=== PATIENT | female | born 1965 | race Caucasian/White ===

== ENCOUNTER 2017-04-30 23:45 | Emergency (ER) | payer BC | END 2017-05-01 00:44 | disposition left against medical advice (07) | LOC: JER 23:45 | DX: Z53.21 Procedure and treatment not carried out due to patient leaving prior to being seen by health care provider (principal) | CPT/HCPCS: 99281-25 ==

== ENCOUNTER 2017-10-25 00:57 | Emergency (ER) | payer OTHER ==
[2017-10-25] MEDS ORDERED: SODIUM CHLORIDE 0.9% 1000 ML INFUS.BAG IV ONE (01:44)
[2017-10-25] MEDS ORDERED: morphine CARPU-JECT 4 MG/1 ML DISP.SYRIN IVPUSH ONE ×2 (01:44→02:26)
[2017-10-25 01:52] VITALS: BP 135/87; PULSE 88; TEMP 98.7; BMI 36.5
[2017-10-25 01:57] LABS: BASO % 0.7 % (0-2.0); EOS % 1.7 % (0-4.5); HEMATOCRIT 42.4 % (32.4-45.2); HEMOGLOBIN 13.9 GM/dL (10.7-15.3); LYMPH % 21.3 % (8-40); MCH 27.4 pg (25.7-33.7); MCHC 32.7 g/dl (32.0-36.0); MEAN CELL VOLUME 83.7 fl (80-96); MEAN PLT VOLUME 9.7 fl (7.5-11.1); MONO % 5.5 % (3.8-10.2); NEUT % 70.8 % (42.8-82.8); PLATELET COUNT 263 K/MM3 (134-434); RBC 5.06 M/mm3 (3.60-5.2); RDW 14.9 % (11.6-15.6); WHITE BLOOD COUNT 11.3 K/mm3 (4.0-10.0)
[2017-10-25] MEDS ORDERED: ONDANSETRON 4 MG/2 ML VIAL ONE (01:58)
[2017-10-25] MEDS ORDERED: morphine CARPU-JECT 10 MG/1 ML DISP.SYRIN ONE ×2 (01:58→02:31)
--- NOTE | 2017-10-25 02:06 | PDOC ---
History of Present Illness - General Chief Complaint: Pain Stated Complaint: STOMACH/SIDE PAIN Time Seen by Provider: 10/25/17 01:38 Past History - Past Medical History Allergies/Adverse Reactions: Allergies Allergy/AdvReac Type Severity Reaction Status Date / Time No Known Allergies Allergy Verified 10/25/17 01:52 Home Medications: Ambulatory Orders Amlodipine Besylate 10 mg PO DAILY 04/30/16 Buspirone HCl [Buspar -] 10 mg PO DAILY 04/30/16 Clonazepam [Klonopin] 1 mg PO DAILY 04/30/16 Desloratadine/Pseudoephedrine [Clarinex-D 12 Hour Tablet] 1 each PO DAILY Losartan/Hydrochlorothiazide [Losartan-Hctz 50-12.5 mg Tab] 1 each PO DAILY Montelukast Na [Singulair -] 10 mg PO HS 04/30/16 Albuterol Sulfate [Proair Respiclick] 90 mcg IH DAILY PRN 05/01/16 Budesonide/Formeterol Fumarate [SYMBICORT 160/4.5mcg -] 1 inh PO DAILY PRN 05/01 Methylprednisolone [Medrol Dose Denzel] 4 mg PO ASDIR #21 tablet 08/10/17 Anemia: No Asthma: Yes Cancer: Yes (RIGHT AND LEFT BREAST) Cardiac Disorders: No CVA: No COPD: No CHF: No Dementia: No Diabetes: No GI Disorders: Yes (DIVERTICULOSIS) Disorders: No HTN: Yes Hypercholesterolemia: No Liver Disease: No Psychiatric Problems: Yes (ANXIETY) Seizures: No Thyroid Disease: No - Surgical History Abdominal Surgery: Yes Appendectomy: No Cardiac Surgery: No Cholecystectomy: No Lung Surgery: No Neurologic Surgery: No Orthopedic Surgery: Yes (LEFT CARPAL TUNNEL) - Suicide/Smoking/Psychosocial Hx Smoking Status: No Smoking History: Never smoked Have you smoked in the past 12 months: No Number of Cigarettes Smoked Daily: 0 Information on smoking cessation initiated: No Hx Alcohol Use: No Drug/Substance Use Hx: No Substance Use Type: None Hx Substance Use Treatment: No *Physical Exam - Vital Signs Last Vital Signs Temp Pulse Resp BP Pulse Ox 98.7 F 88 19 135/87 99 10/25/17 01:49 10/25/17 01:49 10/25/17 01:49 10/25/17 01:49 10/25/17 01:49 ED Treatment Course - LABORATORY CBC & Chemistry Diagram: 10/25/17 01:45 10/25/17 01:53 - ADDITIONAL ORDERS Additional order review: 10/25/17 01:45 RBC 5.06 MCV 83.7 MCHC 32.7 RDW 14.9 MPV 9.7 Neutrophils % 70.8 D Lymphocytes % 21.3 Monocytes % 5.5 Eosinophils % 1.7 Basophils % 0.7 *DC/Admit/Observation/Transfer - Discharge Dispostion Condition at time of disposition: Fair - Referrals - Patient Instructions - Post Discharge Activity
[2017-10-25] MEDS ORDERED: ONDANSETRON 4 MG/2 ML VIAL IVPUSH ONE (02:09)
[2017-10-25 02:12] LABS: INR 0.97 (0.82-1.09)
[2017-10-25 02:14] LABS: ACTIVATED PTT 30.8 SECONDS (26.9-34.4)
[2017-10-25 02:22] LABS: ALBUMIN 3.4 g/dl (3.4-5.0); ANION GAP 12 (8-16); BILIRUBIN,TOTAL 0.4 mg/dL (0.2-1.0); BLOOD UREA NITROGEN 14 mg/dL (7-18); CALCIUM 8.3 mg/dL (8.5-10.1); CHLORIDE 101 mmol/L (98-107); CO2 25 mmol/L (21-32); CREATININE 0.9 mg/dL (0.55-1.02); GLUCOSE,RANDOM 164 mg/dL (74-106); LIPASE 133 U/L (73-393); SGPT/ALT 20 U/L (12-78); SODIUM 138 mmol/L (136-145); TOT PROT 7.4 g/dl (6.4-8.2)
[2017-10-25 02:25] LABS: ALK PHOS 95 U/L (45-117)
[2017-10-25 02:29] LABS: POTASSIUM 4.2 mmol/L (3.5-5.1); SGOT/AST 26 U/L (15-37)
--- NOTE | 2017-10-25 02:44 | PDOC ---
Attending Attestation - Resident Resident Name: Jacob Harris - ED Attending Attestation I have performed the following: I have examined & evaluated the patient, The case was reviewed & discussed with the resident, I agree w/resident's findings & plan - HPI HPI: 10/25/17 02:37 Pt comes with abd pain. She has diffuse tenderness. 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 She cooked at home and ate the food that the whole family ate and nobody else is ill. Pt's mom has a hx og GB stones. Pt is obese. She has no hx of surgeries other than breast lumpectomy and hysterectomy. - Physicial Exam PE: 10/25/17 02:44 Pt is afebrile. Diffiuse abd pain. No fever NO chills. - Medical Decision Making 10/25/17 02:44 Labs pending 10/25/17 03:08 Labs are normal. Pt will be hydrated and she will go home as soon as she feels better. 10/25/17 06:57 Patient Name: PAPO HARDY THIS IS A PRELIMINARY REPORT FROM [facility] DATE OF SERVICE: 2017-10-25 05:39:27 IMAGES: 470 EXAM: CT ABDOMEN AND PELVIS with contrast HISTORY: Right upper quadrant pain COMPARISON: None. FINDINGS:Serial axial sections through the abdomen and pelvis were obtained. Coronal and sagittal reformatted images are available. Intravenous contrast was administered. Oral contrast was not given. There are no prior studies for comparison. The sections through the lung bases are without consolidation. Minimal atelectasis is noted at the lung bases. A water density mass just to the right of the right heart border suggests a pericardial cyst. This measures 5.3 x 3.3 cm in diameter. The liver and spleen have a normal size and configuration. No focal defects are seen.
--- NOTE | 2017-10-25 02:49 | PDOC ---
History of Present Illness - General History Source: Patient Exam Limitations: No Limitations - History of Present Illness Initial Comments: 10/25/17 02:49 The patient is a 52F with a PMH of asthma and HTN who presents to the ED with abdominal pain. The patient states that her pain started abruptly at 1700 on and was associated with NBNB vomiting and severe pain. The pain is located in her epigastric/RUQ region and radiates to her back. The patient is constant, 10/10 and not relieved by anything or provoked by anything. She denies any diarrhea, CP, SOB, fever, chills. <Jacob Harris - Last Filed: 10/25/17 06:44> <Phylicia Gama - Last Filed: 10/25/17 07:38> - General Chief Complaint: Pain Stated Complaint: STOMACH/SIDE PAIN Time Seen by Provider: 10/25/17 01:38 Past History - Past Medical History Anemia: No Asthma: Yes Cancer: Yes (RIGHT AND LEFT BREAST) Cardiac Disorders: No CVA: No COPD: No CHF: No Dementia: No Diabetes: No GI Disorders: Yes (DIVERTICULOSIS) Disorders: No HTN: Yes Hypercholesterolemia: No Liver Disease: No Psychiatric Problems: Yes (ANXIETY) Seizures: No Thyroid Disease: No - Surgical History Abdominal Surgery: Yes Appendectomy: No Cardiac Surgery: No Cholecystectomy: No Lung Surgery: No Neurologic Surgery: No Orthopedic Surgery: Yes (LEFT CARPAL TUNNEL) - Suicide/Smoking/Psychosocial Hx Smoking Status: No Smoking History: Never smoked Have you smoked in the past 12 months: No Number of Cigarettes Smoked Daily: 0 Information on smoking cessation initiated: No Hx Alcohol Use: No Drug/Substance Use Hx: No Substance Use Type: None Hx Substance Use Treatment: No <Jacob Harris - Last Filed: 10/25/17 06:44> <Phylicia Gama - Last Filed: 10/25/17 07:38> - Past Medical History Allergies/Adverse Reactions: Allergies Allergy/AdvReac Type Severity Reaction Status Date / Time No Known Allergies Allergy Verified 10/25/17 01:52 Home Medications: Ambulatory Orders Amlodipine Besylate 10 mg PO DAILY 04/30/16 Buspirone HCl [Buspar -] 10 mg PO DAILY 04/30/16 Clonazepam [Klonopin] 1 mg PO DAILY 04/30/16 Desloratadine/Pseudoephedrine [Clarinex-D 12 Hour Tablet] 1 each PO DAILY Losartan/Hydrochlorothiazide [Losartan-Hctz 50-12.5 mg Tab] 1 each PO DAILY Montelukast Na [Singulair -] 10 mg PO HS 04/30/16 Albuterol Sulfate [Proair Respiclick] 90 mcg IH DAILY PRN 05/01/16 Budesonide/Formeterol Fumarate [SYMBICORT 160/4.5mcg -] 1 inh PO DAILY PRN 05/01 Methylprednisolone [Medrol Dose Denzel] 4 mg PO ASDIR #21 tablet 08/10/17 Ondansetron [Zofran *Odt*] 8 mg SL TID #24 od.tablet 10/25/17 Review of Systems - Review of Systems Able to Perform ROS?: Yes Comments:: 10/25/17 03:05 GENERAL/CONSTITUTIONAL: No fever or chills. No weakness. HEAD, EYES, EARS, NOSE AND THROAT: No change in vision. No ear pain or discharge. No sore throat. GASTROINTESTINAL: Positive for abdominal pain, nausea, and vomiting. No diarrhea or constipation. GENITOURINARY: No dysuria, frequency, hematuria, or change in urination. CARDIOVASCULAR: No chest pain, palpitations, or lightheadedness. RESPIRATORY: No cough, wheezing, shortness of breath, or hemoptysis. MUSCULOSKELETAL: No joint or muscle swelling or pain. No neck or back pain. SKIN: No rash or lesions. NEUROLOGIC: No headache, numbness, tingling, weakness, loss of consciousness, or change in strength/sensation. ENDOCRINE: No increased thirst. No abnormal weight change. HEMATOLOGIC/LYMPHATIC: No anemia, easy bleeding, or history of blood clots. ALLERGIC/IMMUNOLOGIC: No hives or skin allergy. Is the patient limited Brazilian proficient: No <Jacob Harris - Last Filed: 10/25/17 06:44> *Physical Exam - Vital Signs Last Vital Signs Temp Pulse Resp BP Pulse Ox 98.7 F 88 19 135/87 99 10/25/17 01:49 10/25/17 01:49 10/25/17 01:49 10/25/17 01:49 10/25/17 01:49 - Physical Exam Comments: 10/25/17 03:06 GENERAL: Well developed, well nourished. Awake and alert. In mild distress. HEENT: Normocephalic, atraumatic. Hearing grossly normal. Moist mucous membranes. PERRLA, EOMI. No conjunctival pallor. Sclera are non-icteric. Oropharynx is clear. NECK: Supple. Full ROM. No JVD. Carotid pulses 2+ and symmetric, without bruits. No thyromegaly. No lymphadenopathy. CARDIOVASCULAR: Regular rate and rhythm. No murmurs, rubs, or gallops. Distal pulses are 2+ and symmetric. PULMONARY: No evidence of respiratory distress. Lungs clear to auscultation bilaterally. No wheezing, rales or rhonchi. ABDOMINAL: Tenderness to palpation in all quadrants. Soft. Non-distended. No rebound or guarding. GENITOURINARY: R CVA tenderness. MUSCULOSKELETAL: Normal range of motion at all joints. No bony deformities or tenderness. EXTREMITIES: No cyanosis. No clubbing. No edema. No calf tenderness. SKIN: Warm and dry. Normal capillary refill. No rashes. No jaundice. NEUROLOGICAL: Alert, awake, appropriate. Cranial nerves 2-12 intact. Normal speech. Gait is normal without ataxia. PSYCHIATRIC: Cooperative. Good eye contact. Appropriate mood and affect. <Jacob Harris - Last Filed: 10/25/17 06:44> - Vital Signs Last Vital Signs Temp Pulse Resp BP Pulse Ox 98.7 F 88 19 135/87 99 10/25/17 01:49 10/25/17 01:49 10/25/17 01:49 10/25/17 01:49 10/25/17 01:49 <Phylicia Gama - Last Filed: 10/25/17 07:38> Heart Score/ECG Review #1 ECG reviewed & interpreted by me at: 03:15 General ECG Interpretation: Sinus Rhythm, Normal Rate, Normal Intervals, No acute ischemic changes <Jacob Harris - Last Filed: 10/25/17 06:44> ED Treatment Course - LABORATORY CBC & Chemistry Diagram: 10/25/17 01:45 10/25/17 01:53 - ADDITIONAL ORDERS Additional order review: Laboratory Results 10/25/17 10/25/17 10/25/17 01:53 01:45 01:45 PT with INR 11.00 INR 0.97 PTT (Actin FS) 30.8 Sodium 138 Potassium 4.2 Chloride 101 Carbon Dioxide 25 Anion Gap 12 BUN 14 Creatinine 0.9 Creat Clearance w eGFR > 60 Random Glucose 164 H Lactic Acid 1.6 Calcium 8.3 L Total Bilirubin 0.4 D AST 26 D ALT 20 Alkaline Phosphatase 95 Creatine Kinase 86 Troponin I 0.02 Total Protein 7.4 Albumin 3.4 Lipase 133 10/25/17 01:45 RBC 5.06 MCV 83.7 MCHC 32.7 RDW 14.9 MPV 9.7 Neutrophils % 70.8 D Lymphocytes % 21.3 Monocytes % 5.5 Eosinophils % 1.7 Basophils % 0.7 - RADIOLOGY Radiology Studies Ordered: Category Date Time Status ABDOMEN & PELVIS CT WITH CONTR [CT] Stat CT Scan 10/25/17 02:21 Ordered - Medications Given in the ED: ED Medications Discontinued Medications Generic Name Dose Route Start Last Admin Trade Name Freq PRN Reason Stop Dose Admin Morphine Sulfate 4 mg 10/25/17 01:44 10/25/17 02:08 Morphine Injection - IVPUSH 10/25/17 01:45 4 mg ONCE ONE Administration Morphine Sulfate 2 mg 10/25/17 02:26 10/25/17 02:41 Morphine Injection - IVPUSH 10/25/17 02:27 2 mg ONCE ONE Administration Ondansetron HCl 4 mg 10/25/17 02:09 10/25/17 02:09 Zofran Injection IVPUSH 10/25/17 02:10 4 mg NOW ONE Administration Sodium Chloride 1,000 ml 10/25/17 01:44 10/25/17 02:08 Normal Saline - IV 10/25/17 01:45 1,000 ml ONCE ONE Administration <Jacob Harris - Last Filed: 10/25/17 06:44> - LABORATORY CBC & Chemistry Diagram: 10/25/17 01:45 10/25/17 01:53 - ADDITIONAL ORDERS Additional order review: Laboratory Results 10/25/17 10/25/17 10/25/17 02:20 01:53 01:45 PT with INR INR PTT (Actin FS) Sodium 138 Potassium 4.2 Chloride 101 Carbon Dioxide 25 Anion Gap 12 BUN 14 Creatinine 0.9 Creat Clearance w eGFR > 60 Random Glucose 164 H Lactic Acid Calcium 8.3 L Total Bilirubin 0.4 D AST 26 D ALT 20 Alkaline Phosphatase 95 Creatine Kinase 86 Troponin I 0.02 Total Protein 7.4 Albumin 3.4 Lipase 133 Serum , Qual Negative Blood Type B POSITIVE Antibody Screen Negative 10/25/17 10/25/17 01:45 01:45 PT with INR 11.00 INR 0.97 PTT (Actin FS) 30.8 Sodium Potassium Chloride Carbon Dioxide Anion Gap BUN Creatinine Creat Clearance w eGFR Random Glucose Lactic Acid 1.6 Calcium Total Bilirubin AST ALT Alkaline Phosphatase Creatine Kinase Troponin I Total Protein Albumin Lipase Serum , Qual Blood Type Antibody Screen 10/25/17 01:45 RBC 5.06 MCV 83.7 MCHC 32.7 RDW 14.9 MPV 9.7 Neutrophils % 70.8 D Lymphocytes % 21.3 Monocytes % 5.5 Eosinophils % 1.7 Basophils % 0.7 - Medications Given in the ED: ED Medications Discontinued Medications Generic Name Dose Route Start Last Admin Trade Name Freq PRN Reason Stop Dose Admin Al Hydroxide/Mg Hydroxide 30 ml 10/25/17 03:08 10/25/17 03:33 Mylanta Oral Suspension - PO 10/25/17 03:09 30 ml ONCE ONE Administration Famotidine/Sodium Chloride 20 mg in 50 mls @ 100 mls/hr 10/25/17 03:08 03:33 Pepcid 20 Mg Premixed Ivpb - IVPB 10/25/17 03:37 100 mls/hr ONCE ONE Administration Morphine Sulfate 4 mg 10/25/17 01:44 10/25/17 02:08 Morphine Injection - IVPUSH 10/25/17 01:45 4 mg ONCE ONE Administration Morphine Sulfate 2 mg 10/25/17 02:26 10/25/17 02:41 Morphine Injection - IVPUSH 10/25/17 02:27 2 mg ONCE ONE Administration Ondansetron HCl 4 mg 10/25/17 02:09 10/25/17 02:09 Zofran Injection IVPUSH 10/25/17 02:10 4 mg NOW ONE Administration Sodium Chloride 1,000 ml 10/25/17 01:44 10/25/17 02:08 Normal Saline - IV 10/25/17 01:45 1,000 ml ONCE ONE Administration <Phylicia Gama - Last Filed: 10/25/17 07:38> Medical Decision Making - Medical Decision Making 10/25/17 03:15 The patient is a 52F with a PMH of asthma and HTN who presents to the ED with abdominal pain complaints. I am concerned for a RUQ pathology. Pending labs and imaging. Will not order CT per attending. I have a slight concern for appendicitis or ovarian torsion 2/2 to abrupt onset of pain. Labs WNL. Pending UA. 10/25/17 06:34 UA negative. CTAP with IV shows pericardial cyst that looks enlarged on preliminary read. Pending official read. 10/25/17 06:37 Official read shows pericardial cyst. Will instruct patient to follow up with PCP. Otherwise negative. 10/25/17 06:44 Will prescribe zofran outpt. Patient agrees and is ready for d/c. <Jacob Harris - Last Filed: 10/25/17 06:44> *DC/Admit/Observation/Transfer - Discharge Dispostion Admit: No <Jacob Harris - Last Filed: 10/25/17 06:44> - Discharge Dispostion Admit: No <Phylicia Gama - Last Filed: 10/25/17 07:38> Diagnosis at time of Disposition: Abdominal pain Qualifiers: Abdominal location: epigastric Qualified Code(s): R10.13 - Epigastric pain - Discharge Dispostion Disposition: HOME Condition at time of disposition: Stable - Prescriptions Prescriptions: Ondansetron [Zofran *Odt*] 8 mg SL TID #24 od.tablet - Referrals Referrals: Nishant Saez MD [Primary Care Provider] - - Patient Instructions Printed Discharge Instructions: Viral Gastroenteritis Additional Instructions: Please return to the ER if symptoms persist, worsen, or new symptoms arise. Please follow up with your primary care physician in 2-3 days. Please return to the ER if you have any signs or symptoms of chest pain, shortness of breath, uncontrollable fever, chills, nausea, vomiting, numbness, tingling, or weakness in any part of your body, changes in vision, or slurred speech. Print Language: CHINESE - Post Discharge Activity
[2017-10-25] MEDS ORDERED: FAMOTIDINE 20 MG/50 ML IVPB 20 MG/50 ML MG IVPB ONE ×2 (03:08→03:16)
[2017-10-25] MEDS ORDERED: MAG HYDROX/AL HYDROX/SIMETH 30 ML UNIT-DOSE CUP PO ONE (03:08)
[2017-10-25] MEDS ORDERED: MAG HYDROX/AL HYDROX/SIMETH 30 ML UNIT-DOSE CUP ONE (03:16)
[2017-10-25 03:30] LABS: URINE APPEARANCE CLOUDY; URINE BILIRUBIN NEGATIVE (NEGATIVE); URINE BLOOD NEGATIVE (NEGATIVE); URINE COLOR LTYELLOW; URINE GLUCOSE (UA) NEGATIVE (NEGATIVE); URINE KETONE 1+ (NEGATIVE); URINE LEUK ESTERASE NEGATIVE (NEGATIVE); URINE NITRITE NEGATIVE (NEGATIVE); URINE PROTEIN NEGATIVE (NEGATIVE); URINE UROBILINOGEN NEGATIVE mg/dL (0.2-1.0)
[2017-10-25] MEDS ORDERED: PANTOPRAZOLE SODIUM 40 MG in SODIUM CHLORIDE 100 ML IVPB ONE (04:08)
[2017-10-25] MEDS ORDERED: PANTOPRAZOLE SODIUM 40 MG VIAL ONE (04:13)
[2017-10-25] MEDS ORDERED: ONDANSETRON *ODT* 4 MG TABLET ONE (06:53)
[2017-10-25] MEDS ORDERED: ONDANSETRON *ODT* 4 MG TABLET SL ONE (06:54)
--- NOTE | 2017-10-25 10:28 | EKG ---
Test Reason : Blood Pressure : / mmHG Vent. Rate : 078 BPM Atrial Rate : 078 BPM P-R Int : 166 ms QRS Dur : 078 ms QT Int : 374 ms P-R-T Axes : 063 044 044 degrees QTc Int : 426 ms POOR DATA QUALITY, INTERPRETATION MAY BE ADVERSELY AFFECTED NORMAL SINUS RHYTHM POSSIBLE LEFT ATRIAL ENLARGEMENT BORDERLINE ECG WHEN COMPARED WITH ECG OF 09-MAY-2015 08:12, NO SIGNIFICANT CHANGE WAS FOUND Confirmed by DELMIS HOLM MD ([id number]) on 10/25/2017 10:27:54 AM Referred By: Confirmed By:DELMIS HOLM MD
== END 2017-10-25 07:05 | disposition home or self-care (01) ==
LOC: JER 00:57
PROC: 3E033GC Introduction of Other Therapeutic Substance into Peripheral Vein, Percutaneous Approach (ICD-10-PCS; principal; 2017-10-25)
PROC: 3E033GC Introduction of Other Therapeutic Substance into Peripheral Vein, Percutaneous Approach (ICD-10-PCS; 2017-10-25)
PROC: 3E033NZ Introduction of Analgesics, Hypnotics, Sedatives into Peripheral Vein, Percutaneous Approach (ICD-10-PCS; 2017-10-25)
PROC: 3E033GC Introduction of Other Therapeutic Substance into Peripheral Vein, Percutaneous Approach (ICD-10-PCS; 2017-10-25)
DX: A08.4 Viral intestinal infection, unspecified (principal); B97.89 Other viral agents as the cause of diseases classified elsewhere; I10 Essential (primary) hypertension; Z85.3 Personal history of malignant neoplasm of breast; Z87.19 Personal history of other diseases of the digestive system
CPT/HCPCS: 36415; 74177-TC; 80053; 81003; 82550; 83605; 83690; 84484; 84703; 85025; 85610; 85730; 86850; 86900; 86901; 93005; 93010; 99284-25

== ENCOUNTER 2017-11-11 09:57 | Emergency (ER) | payer OTHER ==
[2017-11-11 10:02] VITALS: BP 145/79; PULSE 83; TEMP 98.4; BMI 46.8
--- NOTE | 2017-11-11 10:26 | PDOC ---
History of Present Illness - General History Source: Patient Exam Limitations: No Limitations - History of Present Illness Initial Comments: 11/11/17 10:56 The patient is a 52 year old female, with a significant past medical history of Asthma, HTN, Pericardial cyst, Breast CA, Diverticulosis, Anxiety who presents to the emergency department for evaluation of chest pain. Patient reports chronic chest pain since diagnosis of pericardial cyst for the past 7 months. However, since this morning patient reports worsening midsternal chest pain, pressure-like with associated dyspnea. 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 Patient denied diaphoresis, numbness, tingling, headache or dizziness. Patient denies fever, chills, abdominal pain, nausea, vomit, diarrhea or constipation. Patient denies dysuria, frequency, urgency or hematuria. Patient denies sick contacts or recent travel. Allergies: NKA Past surgical history: breast lumpectomy and hysterectomy Social history: None PCP: Dr. Saez Cardiology: Harinder <Kathe Thompson - Last Filed: 11/11/17 11:12> <Steve Sierra - Last Filed: 11/11/17 15:40> - General Chief Complaint: Chest Pain Stated Complaint: CHEST PAIN Time Seen by Provider: 11/11/17 10:16 Past History <Kathe Thompson - Last Filed: 11/11/17 11:12> - Past Medical History Anemia: No Asthma: Yes Cancer: Yes (RIGHT AND LEFT BREAST) Cardiac Disorders: No CVA: No COPD: No CHF: No Dementia: No Diabetes: No GI Disorders: Yes (DIVERTICULOSIS) Disorders: No HTN: Yes Hypercholesterolemia: No Liver Disease: No Psychiatric Problems: Yes (ANXIETY) Seizures: No Thyroid Disease: No - Surgical History Abdominal Surgery: Yes Appendectomy: No Cardiac Surgery: No Cholecystectomy: No Lung Surgery: No Neurologic Surgery: No Orthopedic Surgery: Yes (LEFT CARPAL TUNNEL) - Suicide/Smoking/Psychosocial Hx Smoking Status: No Smoking History: Never smoked Have you smoked in the past 12 months: No Number of Cigarettes Smoked Daily: 0 Information on smoking cessation initiated: No Hx Alcohol Use: No Drug/Substance Use Hx: No Substance Use Type: None Hx Substance Use Treatment: No <Steve Sierra - Last Filed: 11/11/17 15:40> - Past Medical History Allergies/Adverse Reactions: Allergies Allergy/AdvReac Type Severity Reaction Status Date / Time No Known Allergies Allergy Verified 10/25/17 01:52 Home Medications: Ambulatory Orders Amlodipine Besylate 10 mg PO DAILY 04/30/16 Buspirone HCl [Buspar -] 10 mg PO DAILY 04/30/16 Clonazepam [Klonopin] 1 mg PO DAILY 04/30/16 Desloratadine/Pseudoephedrine [Clarinex-D 12 Hour Tablet] 1 each PO DAILY Losartan/Hydrochlorothiazide [Losartan-Hctz 50-12.5 mg Tab] 1 each PO DAILY Montelukast Na [Singulair -] 10 mg PO HS 04/30/16 Albuterol Sulfate [Proair Respiclick] 90 mcg IH DAILY PRN 05/01/16 Budesonide/Formeterol Fumarate [SYMBICORT 160/4.5mcg -] 1 inh PO DAILY PRN 05/01 Methylprednisolone [Medrol Dose Denzel] 4 mg PO ASDIR #21 tablet 08/10/17 Ondansetron [Zofran *Odt*] 8 mg SL TID #24 od.tablet 10/25/17 Review of Systems - Review of Systems Able to Perform ROS?: Yes <Kathe Thompson - Last Filed: 11/11/17 11:12> - Review of Systems Constitutional: No: Chills, Fever Respiratory: Yes: SOB with Exertion. No: Cough Cardiac (ROS): Yes: Chest Pain, Edema. No: Palpitations, Syncope ABD/GI: No: Diarrhea, Vomiting Neurological: No: Headache All Other Systems: Reviewed and Negative <Steve Sierra - Last Filed: 11/11/17 15:40> *Physical Exam - Vital Signs Last Vital Signs Temp Pulse Resp BP Pulse Ox 98.4 F 83 20 145/79 98 11/11/17 09:59 11/11/17 09:59 11/11/17 09:59 11/11/17 09:59 11/11/17 09:59 - Physical Exam Comments: 11/11/17 10:56 GENERAL: The patient is awake, alert, and fully oriented, in no acute distress. HEAD: Normal with no signs of trauma. EYES: Pupils equal, round and reactive to light, extraocular movements intact, sclera anicteric, conjunctiva clear with no pallor. ENT: Ears normal, nares patent, oropharynx clear without exudates. Moist mucous membranes. NECK: Normal range of motion, supple without lymphadenopathy, JVD, or masses. LUNGS: Breath sounds equal, clear to auscultation bilaterally. No wheeze/ crackles. HEART: Regular rate and rhythm, normal S1 and S2. +2-3/6 Systolic ejection murmur heard over R sternal border. ABDOMEN: Soft/nontender/nondistended. BS wnl. No guarding or rebound. No palpable masses. No hepatosplenomegaly. EXTREMITIES: Normal range of motion. No clubbing or cyanosis. No cords, erythema , or tenderness. +1-2+ Pitting edema to the knee. NEUROLOGICAL: Cranial nerves II through XII grossly intact. Normal speech, normal gait. PSYCH: Normal mood, normal affect. SKIN: Warm, Dry, normal turgor, no rashes or lesions noted. <Kathe Thompson - Last Filed: 11/11/17 11:12> - Vital Signs Last Vital Signs Temp Pulse Resp BP Pulse Ox 98.4 F 83 20 145/79 98 11/11/17 09:59 11/11/17 09:59 11/11/17 09:59 11/11/17 09:59 11/11/17 09:59 <Steve Sierra - Last Filed: 11/11/17 15:40> Heart Score/ECG Review #1 ECG reviewed & interpreted by me at: 09:58 General ECG Interpretation: Sinus Rhythm, Normal Rate (72), Normal Intervals ( qtc 438), No acute ischemic changes (? peaked P in II) <Steve Sierra - Last Filed: 11/11/17 15:40> ED Treatment Course - LABORATORY CBC & Chemistry Diagram: 11/11/17 10:23 11/11/17 10:23 - ADDITIONAL ORDERS Additional order review: 11/11/17 10:23 RBC 4.99 MCV 84.4 MCHC 32.4 RDW 14.8 MPV 8.6 D Neutrophils % 70.6 Lymphocytes % 17.8 Monocytes % 8.1 Eosinophils % 2.5 Basophils % 1.0 <Kathe Thompson - Last Filed: 11/11/17 11:12> - LABORATORY CBC & Chemistry Diagram: 11/11/17 10:23 11/11/17 10:23 - RADIOLOGY Radiology Studies Ordered: Category Date Time Status CHEST PA & LAT [RAD] Stat Radiology 11/11/17 10:24 Ordered <MartinalkaSteve irizarry - Last Filed: 11/11/17 15:40> Medical Decision Making - Medical Decision Making 11/11/17 10:43 A portion of this note was documented by scribe services under my direction. I have reviewed the details of the note, within reason, and agree with the documentation with the following case summary and management plan written by me. 52y/o history of high cholesterol, asthma recently diagnosed pericardial cyst that will likely require thoracic intervention, diagnosed in the setting of 7 months of intermittent chest pain and dyspnea on exertion, had echo and CT chest and was seen by Dr. Pizano yesterday with referral to thoracic surgery, now presents to the emergency department in the setting of worsening chest pain this morning. No recent cough or URI, no fevers or chills. Does not smoke. Last stress test was 3 years ago and was reportedly within normal limits. Vital signs normal Ambulating but slightly dyspneic No JVD Right upper sternal border systolic ejection murmur, otherwise regular Lungs are clear Bilateral pretibial edema 52-year-old female with known large pericardial cyst presents with acute on chronic chest pain, hemodynamically stable and without acute ischemic changes on EKG. Patient is well-known to cardiology, referred here for evaluation. EKG is nonischemic Plan is for troponin, chest x-ray then expedited stress test. Seen with Dr. Jose at bedside. Will dispo together with cardiology 11/11/17 12:31 Labs are within normal limits, troponin negative, urine negative. Sent for stress test, will dispo accordingly as per cardiology. 11/11/17 15:38 Myocardial perfusion study normal without ischemia, plan with cardiology to discharge to outpatient follow-up with thoracic surgery on Wednesday as scheduled. Patient feels well, agrees with plan, understands return criteria. <Steve Sierra - Last Filed: 11/11/17 15:40> *DC/Admit/Observation/Transfer - Attestations Scribe Attestion: 11/11/17 10:56 Documentation prepared by Kathe Thompson, acting as biomedical photographer for Steve Sierra MD <Kathe Thompson - Last Filed: 11/11/17 11:12> <Steve Sierra - Last Filed: 11/11/17 15:40> Diagnosis at time of Disposition: Precordial chest pain - Discharge Dispostion Disposition: HOME Condition at time of disposition: Improved - Referrals Referrals: Nishant Saez MD [Primary Care Provider] - - Patient Instructions Printed Discharge Instructions: DI for Chest Pain Additional Instructions: Activity as tolerated. Stay hydrated. Tylenol 1000 mg every 8 hours and/or ibuprofen 600 mg every 8 hours as needed for pain. Blood tests and a stress test showed no acute abnormalities today. As discussed, continue follow-up with Dr. Pizano and the thoracic surgeon on Wednesday. Continue your medications as previously prescribed by your physician. You should follow up with your primary doctor as soon as possible regarding today's emergency department visit. Return to the emergency department for any new or concerning symptoms, particularly persistent or worsening pain, difficulty breathing, fevers or chills.
[2017-11-11 10:41] LABS: EOS % 2.5 % (0-4.5); HEMATOCRIT 42.1 % (32.4-45.2); HEMOGLOBIN 13.7 GM/dL (10.7-15.3); LYMPH % 17.8 % (8-40); MCH 27.4 pg (25.7-33.7); MCHC 32.4 g/dl (32.0-36.0); MEAN CELL VOLUME 84.4 fl (80-96); MEAN PLT VOLUME 8.6 fl (7.5-11.1); MONO % 8.1 % (3.8-10.2); NEUT % 70.6 % (42.8-82.8); PLATELET COUNT 264 K/MM3 (134-434); RBC 4.99 M/mm3 (3.60-5.2); RDW 14.8 % (11.6-15.6); WHITE BLOOD COUNT 11.2 K/mm3 (4.0-10.0)
--- NOTE | 2017-11-11 10:59 | EKG ---
Test Reason : Blood Pressure : / mmHG Vent. Rate : 072 BPM Atrial Rate : 072 BPM P-R Int : 164 ms QRS Dur : 078 ms QT Int : 400 ms P-R-T Axes : 050 012 025 degrees QTc Int : 438 ms NORMAL SINUS RHYTHM POSSIBLE LEFT ATRIAL ENLARGEMENT BORDERLINE ECG WHEN COMPARED WITH ECG OF 25-OCT-2017 01:36, NO SIGNIFICANT CHANGE WAS FOUND Confirmed by SKY AGUIRRE MD ([id number]) on 11/11/2017 10:59:42 AM Referred By: Confirmed By:SKY AGUIRRE MD
[2017-11-11 11:04] LABS: INR 1.04 (0.82-1.09); PROTHROMBIN TIME (PATIENT) 11.8 SEC (9.98-11.88)
[2017-11-11 11:09] LABS: ALBUMIN 3.3 g/dl (3.4-5.0); ANION GAP 5 (8-16); BLOOD UREA NITROGEN 11 mg/dL (7-18); CALCIUM 8.5 mg/dL (8.5-10.1); CHLORIDE 103 mmol/L (98-107); CO2 31 mmol/L (21-32); CREATININE 0.6 mg/dL (0.55-1.02); GLUCOSE,RANDOM 86 mg/dL (74-106); MAGNESIUM 2.1 mg/dL (1.8-2.4); POTASSIUM 3.7 mmol/L (3.5-5.1); SGOT/AST 108 U/L (15-37); SGPT/ALT 77 U/L (12-78); SODIUM 139 mmol/L (136-145); TOT PROT 6.9 g/dl (6.4-8.2)
[2017-11-11 11:12] LABS: ALK PHOS 95 U/L (45-117)
--- NOTE | 2017-11-11 11:43 | CON.CARD ---
Consult Consult Specialty:: Cardiology Referred by:: ER Reason for Consultation:: Chest pain - History of Present Illness Chief Complaint: Chest pain History of Present Illness: 52 year old woman with a history of HTN, anxiety, breast Ca, recently dx pericardial cyst planned for consideration of resection as outpatient, has been c/o exertional dyspnea and occasional chest pressure for the past 6 months, c/o chest pain today and thus sent to the ER. Pt seen and examined in the ER in nad. states her pain is the same as usual. denies any pain or sob currently. No palpitations. no pnd, orthopnea, or LE edema. No lightheadedness, dizziness, syncope or near syncope. - History Source History Provided By: Patient, Medical Record Limitations to Obtaining History: No Limitations - Past Medical History Cardio/Vascular: Yes: HTN, Other (pericardial cyst) - Alcohol/Substance Use Hx Alcohol Use: No - Smoking History Smoking history: Never smoked Have you smoked in the past 12 months: No Aproximately how many cigarettes per day: 0 - Social History ADL: Independent History of Recent Travel: No Home Medications - Allergies Allergies/Adverse Reactions: Allergies Allergy/AdvReac Type Severity Reaction Status Date / Time No Known Allergies Allergy Verified 10/25/17 01:52 - Home Medications Home Medications: Ambulatory Orders Amlodipine Besylate 10 mg PO DAILY 04/30/16 Buspirone HCl [Buspar -] 10 mg PO DAILY 04/30/16 Clonazepam [Klonopin] 1 mg PO DAILY 04/30/16 Desloratadine/Pseudoephedrine [Clarinex-D 12 Hour Tablet] 1 each PO DAILY Losartan/Hydrochlorothiazide [Losartan-Hctz 50-12.5 mg Tab] 1 each PO DAILY Montelukast Na [Singulair -] 10 mg PO HS 04/30/16 Albuterol Sulfate [Proair Respiclick] 90 mcg IH DAILY PRN 05/01/16 Budesonide/Formeterol Fumarate [SYMBICORT 160/4.5mcg -] 1 inh PO DAILY PRN 05/01 Methylprednisolone [Medrol Dose Denzel] 4 mg PO ASDIR #21 tablet 08/10/17 Ondansetron [Zofran *Odt*] 8 mg SL TID #24 od.tablet 10/25/17 Family Disease History - Family Disease History Family History: Denies Review of Systems - Review of Systems Constitutional: denies: No Symptoms, Chills, Diaphoresis, Fever, Lethargy, Loss of Appetite, Malaise, Night Sweats, Unintentional Wgt. Loss, Weakness, Other Eyes: denies: No Symptoms, Blind Spots, Blurred Vision, Double Vision, Eye Pain , Floaters, Photophobia, Recent Change in Vision, Other HENT: denies: No Symptoms, Difficult Swallowing, Ear Discharge, Ear Pain, Epistaxis, Gingival Bleeding, Hearing Loss, Mouth Swelling, Nasal Congestion, Ocular Prosthesis, Throat Pain, Toothache, Ringing in Ears, Other Neck: denies: No Symptoms, Decreased ROM, Lumps, Pain on Movement, Stiffness, Swollen Glands, Tenderness, Other Cardiovascular: reports: Chest Pain, Shortness of Breath. denies: No Symptoms, Edema, Palpitations, Other Respiratory: reports: SOB on Exertion. denies: No Symptoms, Cough, Exercise Intolerance, Hemoptysis, Orthopnea, PND, Snoring, SOB, Wheezing, Other Gastrointestinal: denies: No Symptoms, Abdominal Pain, Bloating, Constipation, Diarrhea, Dysphagia, Indigestion, Melena, Nausea, Rectal Bleeding, Vomiting, Vomiting Blood, Other Genitourinary: denies: No Symptoms, Burning, Discharge, Dysuria, Flank Pain, Frequency, Hematuria, Incontinence, Lesions, Menses, Pain, Testicular Mass, Testicular Pain, Testicular Swelling, Urgency, Vaginal Bleeding, Other Breasts: denies: No Symptoms Reported, See HPI, Breast Implants, Discharge from Nipple, Lumps, Pain, Skin Changes, Other Musculoskeletal: denies: No Symptoms, Back Pain, Crepitus, Decreased ROM, Extremity Pain, Joint Pain, Joint Swelling, Muscle Pain, Muscle Cramps, Muscle Weakness, Other Integumentary: denies: No Symptoms, Blister, Bruising, Change in Color, Eczema, Erythema, Incision, Lesions, Lump, Pallor, Pruritis, Rash, Wound, Other Neurological: denies: No Symptoms, Change in LOC, Change in Speech, Confusion, Dizziness, Headache, Incoordination, Numbness, Parasthesia, Pre-Existing Deficit , Seizure, Syncope, Tremors, Unsteady Gait, Weakness, Other Endocrine: denies: No Symptoms, Excessive Sweating, Flushing, Increased Hunger, Increased Thirst, Intolerance to Cold, Intolerance to Heat, Unexplained Weight Gain, Unexplained Weight Loss, Other Hematology/Lymphatic: denies: No Symptoms, Easily Bruised, Excessive Bleeding, Swollen Glands, Other Psychiatric: denies: No Symptoms, Altered Sleep Pattern, Anxiety, Depression, Hallucinations, Panic, Paranoia, Suicidal, Other - Risk Factors Known Risk Factors: Yes: Hypertension Vital Signs: Vital Signs Temperature 98.4 F 11/11/17 09:59 Pulse Rate 83 11/11/17 09:59 Respiratory Rate 20 11/11/17 09:59 Blood Pressure 145/79 11/11/17 09:59 O2 Sat by Pulse Oximetry (%) 98 11/11/17 09:59 Constitutional: Yes: Well Nourished, No Distress, Calm Eyes: Yes: WNL, Conjunctiva Clear, EOM Intact, PERRL HENT: Yes: WNL, Atraumatic, Normocephalic Neck: Yes: WNL, Supple, Trachea Midline Respiratory: Yes: WNL, Regular, CTA Bilaterally. No: Rales, Rhonchi, Wheezes Gastrointestinal: Yes: WNL, Normal Bowel Sounds, Soft. No: Distention, Tenderness Renal/: Yes: WNL Cardiovascular: Yes: Regular Rate and Rhythm. No: Bradycardia, Tachycardia, Pulse Irregular, Gallop, Rub, Varicosities JVD: No Carotid Bruit: No PMI: Non-Displaced Heart Sounds: Yes: S1. No: Split S2, S3, S4, Clicks, Gallop, Rub, Bruit Murmur: No: Systolic Murmur, Diastolic Murmur Musculoskeletal: Yes: WNL Extremities: Yes: WNL Edema: No Peripheral Pulses WNL: Yes Peripheral Pulses: 2+ Left Doralis Pedis, 2+ Right Dorsalis Pedis Integumentary: Yes: WNL Neurological: Yes: WNL, Alert, Oriented, Cran Nerves II-XII Intact ...Motor Strength: WNL Psychiatric: Yes: WNL, Alert, Oriented - Other Data Labs, Other Data: CBC, BMP 11/11/17 10:23 11/11/17 10:23 Troponin, BNP 11/11/17 10:23 Troponin I 0.03 Troponin, BNP 11/11/17 10:23 Troponin I 0.03 ekg-nsr, possible LAE, no sig ST abnl Echo: Report Reviewed Imaging - Results Chest X-ray: Report Reviewed, Image Reviewed EKG: Report Reviewed, Image Reviewed Other: Report Reviewed, Image Reviewed Assessment/Plan 52 year old woman with a history of HTN, anxiety, breast Ca, recently dx pericardial cyst planned for consideration of resection as outpatient, has been c/o exertional dyspnea and occasional chest pressure for the past 6 months, c/o chest pain today and thus sent to the ER. Chest pain-atypical, unlikely ACS, more likely related to pericardial cyst and anxiety -no ischemia on ekg -cardiac enzymes wnl -recent echo normal LV systolic function -plan for nuclear stress test today, if no ischemia pt would be acceptable for discharge home with close outpatient f/up Pericardial cyst -outpatient f/up and CTS evaluation HTN-adequately controlled -cont home medical regimen
[2017-11-11] MEDS ORDERED: REGADENOSON 0.4 MG/5 ML PRE-FILLED SYRINGE IVPUSH ONE (12:15)
== END 2017-11-11 16:06 | disposition home or self-care (01) ==
LOC: JER 09:57
DX: R07.2 Precordial pain (principal); I10 Essential (primary) hypertension; J45.909 Unspecified asthma, uncomplicated; F41.9 Anxiety disorder, unspecified; Z85.3 Personal history of malignant neoplasm of breast; Z87.19 Personal history of other diseases of the digestive system
CPT/HCPCS: 36415; 71046-TC; 78452-TC; 80053; 82550; 83735; 84484; 84703; 85025; 85610; 93005; 93010; 93017; 99281-25; A9502

== ENCOUNTER 2018-01-14 08:21 | Day surgery (SDC) | payer OTHER ==
[2018-01-13 09:09] VITALS: BMI 42.4
[2018-01-14] MEDS ORDERED: PROPOFOL 20 ML ONE ×2 (10:13)
[2018-01-14 10:51] VITALS: TEMP 97.6
[2018-01-14 11:01] VITALS: BP 138/86
[2018-01-14 12:02] VITALS: PULSE 77
== END 2018-01-14 11:30 | disposition home or self-care (01) ==
LOC: JASU-ENDO 08:21
PROVIDERS: ATTEND Internal Medicine Gastroenterology
PROC: 0DJ08ZZ Inspection of Upper Intestinal Tract, Via Natural or Artificial Opening Endoscopic (ICD-10-PCS; principal; 2018-01-14 09:30)
DX: K21.9 Gastro-esophageal reflux disease without esophagitis (principal)

== ENCOUNTER 2022-01-22 16:31 | Observation (INO) | payer OTHER ==
[2022-01-22 16:35] VITALS: BMI 44.1
[2022-01-22 18:39] LABS: CALCIUM 8.8 mg/dL (8.5-10.1)
[2022-01-22 18:40] LABS: ALBUMIN 3.4 g/dl (3.4-5.0); BLOOD UREA NITROGEN 11.5 mg/dL (7-18)
[2022-01-22 18:43] LABS: CREATININE 0.7 mg/dL (0.55-1.3)
[2022-01-22 18:44] LABS: BILIRUBIN,TOTAL 0.4 mg/dL (0.2-1); TOT PROT 7.1 g/dl (6.4-8.2)
[2022-01-22 18:53] LABS: BASO % 1.1 % (0-2.0); EOS % 4.6 % (0-4.5); HEMATOCRIT 44.5 % (32.4-45.2); HEMOGLOBIN 14.6 GM/dL (10.7-15.3); LYMPH % 32.8 % (8-40); MCH 28.3 pg (25.7-33.7); MCHC 32.8 g/dl (32.0-36.0); MEAN CELL VOLUME 86.3 fl (80-96); MEAN PLT VOLUME 10.1 fl (7.5-11.1); MONO % 8.9 % (3.8-10.2); NEUT % 52.6 % (42.8-82.8); PLATELET COUNT 214 10^3/uL (134-434); RBC 5.16 M/mm3 (3.60-5.2); RDW 15.3 % (11.6-15.6); WHITE BLOOD COUNT 8.4 K/mm3 (4.0-10.0)
[2022-01-22] MEDS ORDERED: ASPIRIN 81 MG CHEWABLE TABLETS PO ONE (20:22)
[2022-01-22 20:46] VITALS: BP 125/103; TEMP 98.8
[2022-01-22] MEDS ORDERED: ASPIRIN 81 MG CHEWABLE TABLETS ONE (20:55)
[2022-01-22] MEDS ORDERED: ALBUTEROL SO4 HFA INHALER IH PRN (22:28)
[2022-01-22 23:07] VITALS: PULSE 57
[2022-01-23] MEDS ORDERED: MONTELUKAST NA 10 MG TABLET PO SCH (10:00)
[2022-01-23] MEDS ORDERED: busPIRone HCL 10 MG TABLET (FP) PO SCH (10:00)
[2022-01-23] MEDS ORDERED: HYDROCHLOROTHIAZIDE 12.5 MG CAPSULE (FP) PO SCH (10:00)
[2022-01-23] MEDS ORDERED: LOSARTAN POTASSIUM 50 MG TABLET PO SCH (10:00)
[2022-01-23] MEDS ORDERED: BUDESONIDE/FORMETEROL FUMARATE 160/4.5 mcg INHALER IH SCH (10:00)
[2022-01-23] MEDS ORDERED: metoPROLOL SUCCINATE 25 MG TAB.SR.24H (FP) PO SCH (10:00)
[2022-01-23] MEDS ORDERED: TIOTROPIUM BROMIDE 2.5 MCG (SPIRIVA) RESPIMAT INHALER IH SCH (10:00)
== END 2022-01-23 00:25 | disposition left against medical advice (07) ==
LOC: JER 16:31 → JERBED 20:25
PROVIDERS: ADMIT Hospitalist; ATTEND Hospitalist
DX: R07.89 Other chest pain (principal); Q24.8 Other specified congenital malformations of heart; J45.909 Unspecified asthma, uncomplicated; I10 Essential (primary) hypertension; R06.02 Shortness of breath; E06.3 Autoimmune thyroiditis; E66.01 Morbid (severe) obesity due to excess calories; Z68.41 Body mass index [BMI] 40.0-44.9, adult
CPT/HCPCS: 36415; 71045-TC-FY; 71250-TC; 80053; 84439; 84443; 84484; 85025; 93005; 93010; 99285-25; C9803-CS; G0378; U0003; U0005

== ENCOUNTER 2022-02-14 14:03 | Emergency (ER) | payer OTHER ==
[2022-02-14 14:10] VITALS: BP 130/49; PULSE 78; TEMP 97.9; BMI 49.5
== END 2022-02-14 16:20 | disposition home or self-care (01) ==
LOC: JER 14:03
DX: M79.604 Pain in right leg (principal)
CPT/HCPCS: 93971-TC; 99284-25

== ENCOUNTER 2022-03-02 13:11 | Emergency (ER) | payer OTHER ==
[2022-03-02 13:26] VITALS: BMI 49.1
[2022-03-02] MEDS ORDERED: METOPROLOL TARTRATE 5 MG/5 ML VIAL IVPUSH ONE ×4 (13:39→19:11)
[2022-03-02] MEDS ORDERED: METOPROLOL TARTRATE 5 MG/5 ML VIAL ONE ×2 (14:14→16:23)
[2022-03-02 14:35] LABS: BASO % 0.4 % (0-2.0); EOS % 0.8 % (0-4.5); HEMATOCRIT 34.5 % (32.4-45.2); HEMOGLOBIN 11.4 GM/dL (10.7-15.3); LYMPH % 16.3 % (8-40); MCH 27.7 pg (25.7-33.7); MCHC 33.1 g/dl (32.0-36.0); MEAN CELL VOLUME 83.6 fl (80-96); MEAN PLT VOLUME 8.7 fl (7.5-11.1); MONO % 15.3 % (3.8-10.2); NEUT % 67.2 % (42.8-82.8); PLATELET COUNT 397 10^3/uL (134-434); RBC 4.13 M/mm3 (3.60-5.2); RDW 14.6 % (11.6-15.6); VENOUS BASE EXCESS 1.4 mmol/L (-2-2); VENOUS O2 SATURATION 90.7 % (70-80); VENOUS PCO2 36.7 mmHg (38-52); VENOUS PH 7.453 (7.310-7.410); WHITE BLOOD COUNT 11.1 K/mm3 (4.0-10.0)
[2022-03-02 14:43] LABS: INR 1.34 (0.83-1.09); PROTHROMBIN TIME (PATIENT) 15.4 SEC (9.7-13.0)
[2022-03-02 14:46] LABS: ACTIVATED PTT 30.3 SECONDS (25.2-36.5)
[2022-03-02 15:09] LABS: CALCIUM 8.5 mg/dL (8.5-10.1)
[2022-03-02 15:10] LABS: ALBUMIN 2.8 g/dl (3.4-5.0); BLOOD UREA NITROGEN 7.4 mg/dL (7-18); MAGNESIUM 2.3 mg/dL (1.8-2.4)
[2022-03-02 15:13] LABS: CREATININE 0.7 mg/dL (0.55-1.3)
[2022-03-02 15:15] LABS: BILIRUBIN,TOTAL 0.8 mg/dL (0.2-1)
[2022-03-02 15:18] LABS: N-TERMINAL BNP 488.7 pg/ml (5-125)
[2022-03-02 17:56] VITALS: TEMP 97.6
[2022-03-02 21:54] VITALS: BP 133/85; PULSE 87
== END 2022-03-02 21:45 | disposition short-term general hospital (02) ==
LOC: JER 13:11 → JERBED 16:00 → UNDOADMIN 16:00
PROC: 3E033NZ Introduction of Analgesics, Hypnotics, Sedatives into Peripheral Vein, Percutaneous Approach (ICD-10-PCS; principal; 2022-03-02)
PROC: 3E033GC Introduction of Other Therapeutic Substance into Peripheral Vein, Percutaneous Approach (ICD-10-PCS; 2022-03-02)
PROC: 3E033GC Introduction of Other Therapeutic Substance into Peripheral Vein, Percutaneous Approach (ICD-10-PCS; 2022-03-02)
DX: I48.91 Unspecified atrial fibrillation (principal)
CPT/HCPCS: 0241U-QW; 36415; 71045-TC-FY; 71275-TC; 80053; 82803; 83735; 83880; 84439; 84443; 84481; 84484; 85025; 85610; 85730; 93005; 93010; 99285-25; Q9967

== ENCOUNTER 2022-03-18 11:48 | Inpatient (IN) | payer OTHER ==
[2022-03-18 14:31] LABS: EOS % 1.8 % (0-4.5); HEMATOCRIT 37.1 % (32.4-45.2); HEMOGLOBIN 12.2 GM/dL (10.7-15.3); MCH 27.2 pg (25.7-33.7); MCHC 32.7 g/dl (32.0-36.0); MEAN PLT VOLUME 8.8 fl (7.5-11.1); NEUT % 58.2 % (42.8-82.8); PLATELET COUNT 392 10^3/uL (134-434); RBC 4.48 M/mm3 (3.60-5.2)
[2022-03-18 14:32] LABS: PH,URINE 7.5 (5.0-8.0); URINE APPEARANCE CLEAR; URINE BILIRUBIN NEGATIVE (NEGATIVE); URINE COLOR YELLOW; URINE GLUCOSE (UA) NEGATIVE (NEGATIVE); URINE KETONE NEGATIVE (NEGATIVE); URINE LEUK ESTERASE NEGATIVE (NEGATIVE); URINE NITRITE NEGATIVE (NEGATIVE); URINE PROTEIN NEGATIVE (NEGATIVE); URINE UROBILINOGEN 0.2 mg/dL (0.2-1.0)
[2022-03-18 14:50] LABS: CALCIUM 8.9 mg/dL (8.5-10.1)
[2022-03-18 14:51] LABS: ALBUMIN 2.8 g/dl (3.4-5.0); BLOOD UREA NITROGEN 9.9 mg/dL (7-18)
[2022-03-18 14:54] LABS: CREATININE 0.7 mg/dL (0.55-1.3)
[2022-03-18 14:56] LABS: BILIRUBIN,TOTAL 0.5 mg/dL (0.2-1); TOT PROT 7.4 g/dl (6.4-8.2)
[2022-03-18 14:59] LABS: N-TERMINAL BNP 677.4 pg/ml (5-125)
[2022-03-18 15:09] LABS: ERYTHROCYTE SEDIMENTATION RATE 79 mm/hr (0-30)
[2022-03-18] MEDS ORDERED: PIPERACILLIN/TAZOB 3.375 GM 3.375 GM in DEXTROSE 5%-WATER - 50 ML IVPB ONE (18:36)
[2022-03-18] MEDS ORDERED: PIPERACILLIN/TAZOB 3.375 GM 3.375 GM/50 ML BAG IVPB ONE (18:42)
[2022-03-18] MEDS ORDERED: VANCOMYCIN 1 GM in D5W (PRE-DOCKED) 1,000 MG/250 ML IVPB SCH (22:00)
[2022-03-18] MEDS ORDERED: LOSARTAN POTASSIUM 50 MG TABLET PO SCH (22:00)
[2022-03-18] MEDS ORDERED: HYDROCHLOROTHIAZIDE 25 MG TABLET (FP) PO SCH (22:00)
[2022-03-18 23:09] LABS: MAGNESIUM 2.3 mg/dL (1.8-2.4)
[2022-03-18 23:12] LABS: URIC ACID 4.4 mg/dL (2.6-7.2)
[2022-03-19] MEDS ORDERED: ALBUTEROL SO4 2 MG TABLET PO PRN (02:06)
[2022-03-19] MEDS ORDERED: FUROSEMIDE 40 MG TABLET (FP) ONE ×2 (03:07→08:22)
[2022-03-19] MEDS ORDERED: COLCHICINE 0.6 MG TAB ONE ×2 (03:08→08:22)
[2022-03-19] MEDS ORDERED: ASPIRIN 325 MG ENTERIC COATED TABLET (FP) ONE (03:08)
[2022-03-19] MEDS ORDERED: PIPERACILLIN/TAZOB 4.5 GM 4.5 GM/100 ML BAG IVPB ONE ×2 (03:08→10:08)
[2022-03-19] MEDS ORDERED: ENOXAPARIN NA (PORCINE) 40 MG/0.4 ML DISP.SYRIN SQ ONE ×2 (03:09→08:23)
[2022-03-19] MEDS: ASPIRIN 325 MG ENTERIC COATED TABLET (FP) PO SCH ×3 (03:09→17:26)
[2022-03-19] MEDS: FUROSEMIDE 40 MG TABLET (FP) PO SCH ×2 (03:09→09:59)
[2022-03-19] MEDS: COLCHICINE 0.6 MG TAB PO SCH ×2 (03:09→09:58)
[2022-03-19] MEDS: ENOXAPARIN NA (PORCINE) 40 MG/0.4 ML DISP.SYRIN SQ SCH ×2 (03:09→09:59)
[2022-03-19] MEDS: PANTOPRAZOLE 40 MG TABLET PO SCH ×2 (03:11→09:59)
[2022-03-19] MEDS: PIPERACILLIN/TAZOB 4.5 GM 4.5 GM in DEXTROSE 5%-WATER 100 ML IVPB SCH ×2 (04:35→10:06)
[2022-03-19 07:04] LABS: BASO % 0.3 % (0-2.0); EOS % 1.1 % (0-4.5); HEMATOCRIT 36.2 % (32.4-45.2); HEMOGLOBIN 11.9 GM/dL (10.7-15.3); MCH 26.9 pg (25.7-33.7); MCHC 32.7 g/dl (32.0-36.0); MEAN CELL VOLUME 82.2 fl (80-96); MEAN PLT VOLUME 8.9 fl (7.5-11.1); MONO % 10.2 % (3.8-10.2); NEUT % 68.4 % (42.8-82.8); PLATELET COUNT 408 10^3/uL (134-434); RBC 4.41 M/mm3 (3.60-5.2); RDW 15.3 % (11.6-15.6); WHITE BLOOD COUNT 10.1 K/mm3 (4.0-10.0)
[2022-03-19 07:19] LABS: CALCIUM 8.7 mg/dL (8.5-10.1)
[2022-03-19 07:20] LABS: ALBUMIN 2.7 g/dl (3.4-5.0); BLOOD UREA NITROGEN 9.4 mg/dL (7-18); MAGNESIUM 2.1 mg/dL (1.8-2.4)
[2022-03-19 07:23] LABS: CREATININE 0.8 mg/dL (0.55-1.3)
[2022-03-19 07:24] LABS: TOT PROT 6.8 g/dl (6.4-8.2)
[2022-03-19 07:25] LABS: BILIRUBIN,TOTAL 0.6 mg/dL (0.2-1)
[2022-03-19 07:41] LABS: CHOLESTEROL 146 mg/dL (50-200); TRIGLYCERIDES 60 mg/dL (0-150)
[2022-03-19 07:42] LABS: LDL CHOLESTEROL (ONLY SJRH) 96 mg/dL (5-100)
[2022-03-19 07:44] LABS: HDL CHOLESTEROL 46 mg/dL (40-60)
[2022-03-19] MEDS ORDERED: PANTOPRAZOLE 40 MG TABLET PO ONE (08:22)
[2022-03-19] MEDS: TIOTROPIUM BROMIDE 2.5 MCG (SPIRIVA) RESPIMAT INHALER IH SCH (09:59)
[2022-03-19] MEDS: FLUTICASONE PROP 0.05% 16 GM NASAL SPRAY NS SCH (09:59)
[2022-03-19] MEDS: BUDESONIDE/FORMETEROL FUMARATE 160/4.5 mcg INHALER IH SCH (09:59)
[2022-03-19] MEDS ORDERED: HYDROCHLOROTHIAZIDE 25 MG TABLET (FP) ONE (10:37)
[2022-03-19] MEDS: HYDROCHLOROTHIAZIDE 12.5 MG CAPSULE (FP) PO SCH (10:45)
[2022-03-19] MEDS: LOSARTAN POTASSIUM 50 MG TABLET PO SCH (11:14)
[2022-03-19] MEDS: ALBUTEROL SO4 0.083% IH SOL 2.5 MG/3 ML VIAL.NEB. NEB SCH ×2 (15:29→20:36)
[2022-03-19] MEDS ORDERED: PIPERACILLIN/TAZOBACTAM 3.375 GM VIAL IVPB ONE (17:42)
[2022-03-19] MEDS ORDERED: DEXTROSE 5%-WATER - 50 ML IVPB ONE (17:43)
[2022-03-19] MEDS: PIPERACILLIN/TAZOB 3.375 GM 3.375 GM in DEXTROSE 5%-WATER - 50 ML IVPB SCH (17:46)
[2022-03-19] MEDS ORDERED: MONTELUKAST NA 10 MG TABLET PO SCH (22:00)
[2022-03-20] MEDS: HYDROCHLOROTHIAZIDE 12.5 MG CAPSULE (FP) PO SCH ×4 (00:42→22:05)
[2022-03-20] MEDS: ENOXAPARIN NA (PORCINE) 40 MG/0.4 ML DISP.SYRIN SQ SCH ×3 (00:42→22:05)
[2022-03-20] MEDS: ASPIRIN 325 MG ENTERIC COATED TABLET (FP) PO SCH ×4 (00:42→18:49)
[2022-03-20] MEDS: BUDESONIDE/FORMETEROL FUMARATE 160/4.5 mcg INHALER IH SCH ×3 (00:43→22:06)
[2022-03-20] MEDS ORDERED: PIPERACILLIN/TAZOBACTAM 3.375 GM VIAL IVPB ONE ×4 (01:38→18:46)
[2022-03-20] MEDS ORDERED: DEXTROSE 5%-WATER - 50 ML IVPB ONE ×4 (01:38→18:46)
[2022-03-20] MEDS ORDERED: PIPERACILLIN/TAZOB 4.5 GM 4.5 GM in DEXTROSE 5%-WATER 100 ML IVPB SCH (02:00)
[2022-03-20] MEDS: PIPERACILLIN/TAZOB 3.375 GM 3.375 GM in DEXTROSE 5%-WATER - 50 ML IVPB SCH ×3 (02:07→18:54)
[2022-03-20] MEDS: COLCHICINE 0.6 MG TAB PO SCH ×3 (02:11→22:05)
[2022-03-20] MEDS: ALBUTEROL SO4 0.083% IH SOL 2.5 MG/3 ML VIAL.NEB. NEB SCH ×4 (08:14→20:46)
[2022-03-20] MEDS: PANTOPRAZOLE 40 MG TABLET PO SCH (09:48)
[2022-03-20] MEDS: FUROSEMIDE 40 MG TABLET (FP) PO SCH (09:49)
[2022-03-20] MEDS: LOSARTAN POTASSIUM 50 MG TABLET PO SCH ×2 (09:49→09:59)
[2022-03-20] MEDS: TIOTROPIUM BROMIDE 2.5 MCG (SPIRIVA) RESPIMAT INHALER IH SCH (10:10)
[2022-03-20] MEDS: FLUTICASONE PROP 0.05% 16 GM NASAL SPRAY NS SCH (10:11)
[2022-03-20 11:14] VITALS: BMI 45.7
[2022-03-20 11:24] LABS: BASO % 0.3 % (0-2.0); EOS % 3.3 % (0-4.5); HEMATOCRIT 36.9 % (32.4-45.2); HEMOGLOBIN 11.9 GM/dL (10.7-15.3); LYMPH % 29.2 % (8-40); MCH 26.4 pg (25.7-33.7); MCHC 32.3 g/dl (32.0-36.0); MEAN CELL VOLUME 81.8 fl (80-96); MEAN PLT VOLUME 8.7 fl (7.5-11.1); NEUT % 57.2 % (42.8-82.8); PLATELET COUNT 444 10^3/uL (134-434); RBC 4.51 M/mm3 (3.60-5.2); RDW 15.3 % (11.6-15.6); WHITE BLOOD COUNT 7.2 K/mm3 (4.0-10.0)
[2022-03-20 11:31] LABS: CHLORIDE 98 mmol/L (98-107); SODIUM 137 mmol/L (136-145)
[2022-03-20 11:33] LABS: ALBUMIN 2.9 g/dl (3.4-5.0); ANION GAP 8 MMOL/L (8-16); BLOOD UREA NITROGEN 13.7 mg/dL (7-18); CALCIUM 8.9 mg/dL (8.5-10.1); CO2 31 mmol/L (21-32); GLUCOSE,RANDOM 134 mg/dL (74-106); MAGNESIUM 2.4 mg/dL (1.8-2.4)
[2022-03-20 11:36] LABS: CREATININE 0.7 mg/dL (0.55-1.3); PHOSPHOROUS 3.5 mg/dL (2.5-4.9); SGOT/AST 10 U/L (15-37); SGPT/ALT 16 U/L (13-61)
[2022-03-20 11:38] LABS: BILIRUBIN,TOTAL 0.4 mg/dL (0.2-1); TOT PROT 7.5 g/dl (6.4-8.2)
[2022-03-20 11:39] LABS: ALK PHOS 67 U/L (45-117)
[2022-03-20] MEDS: MONTELUKAST NA 10 MG TABLET PO SCH (22:05)
[2022-03-21] MEDS ORDERED: DEXTROSE 5%-WATER - 50 ML IVPB ONE ×3 (01:19→17:44)
[2022-03-21] MEDS ORDERED: PIPERACILLIN/TAZOBACTAM 3.375 GM VIAL IVPB ONE ×3 (01:19→17:44)
[2022-03-21] MEDS: PIPERACILLIN/TAZOB 3.375 GM 3.375 GM in DEXTROSE 5%-WATER - 50 ML IVPB SCH ×3 (01:38→19:00)
[2022-03-21] MEDS: ALBUTEROL SO4 0.083% IH SOL 2.5 MG/3 ML VIAL.NEB. NEB SCH ×4 (08:02→20:03)
[2022-03-21] MEDS: ENOXAPARIN NA (PORCINE) 40 MG/0.4 ML DISP.SYRIN SQ SCH ×2 (09:51→21:16)
[2022-03-21] MEDS: HYDROCHLOROTHIAZIDE 12.5 MG CAPSULE (FP) PO SCH ×2 (09:52→21:17)
[2022-03-21] MEDS: ASPIRIN 325 MG TABLET PO SCH ×2 (09:52→21:18)
[2022-03-21] MEDS: COLCHICINE 0.6 MG TAB PO SCH ×2 (09:52→21:16)
[2022-03-21] MEDS: FUROSEMIDE 40 MG TABLET (FP) PO SCH (09:52)
[2022-03-21] MEDS: TIOTROPIUM BROMIDE 2.5 MCG (SPIRIVA) RESPIMAT INHALER IH SCH (09:53)
[2022-03-21] MEDS: PANTOPRAZOLE 40 MG TABLET PO SCH (09:53)
[2022-03-21] MEDS: BUDESONIDE/FORMETEROL FUMARATE 160/4.5 mcg INHALER IH SCH ×2 (09:53→21:17)
[2022-03-21] MEDS: LOSARTAN POTASSIUM 50 MG TABLET PO SCH (10:01)
[2022-03-21 10:10] LABS: HEMATOCRIT 35.5 % (32.4-45.2); HEMOGLOBIN 11.9 GM/dL (10.7-15.3); MCH 27.7 pg (25.7-33.7); MCHC 33.6 g/dl (32.0-36.0); MEAN CELL VOLUME 82.4 fl (80-96); MEAN PLT VOLUME 9.2 fl (7.5-11.1); PLATELET COUNT 419 10^3/uL (134-434); RDW 15.1 % (11.6-15.6); WHITE BLOOD COUNT 6.3 K/mm3 (4.0-10.0)
[2022-03-21 10:33] LABS: ALBUMIN 2.7 g/dl (3.4-5.0); BILIRUBIN,TOTAL 0.3 mg/dL (0.2-1); BLOOD UREA NITROGEN 13.3 mg/dL (7-18); CALCIUM 9.3 mg/dL (8.5-10.1); CREATININE 0.8 mg/dL (0.55-1.3); TOT PROT 7.2 g/dl (6.4-8.2)
[2022-03-21] MEDS: FLUTICASONE PROP 0.05% 16 GM NASAL SPRAY NS SCH (12:31)
[2022-03-21] MEDS: MONTELUKAST NA 10 MG TABLET PO SCH (21:17)
[2022-03-22] MEDS ORDERED: PIPERACILLIN/TAZOBACTAM 3.375 GM VIAL IVPB ONE ×2 (01:28→10:09)
[2022-03-22] MEDS ORDERED: DEXTROSE 5%-WATER - 50 ML IVPB ONE ×2 (01:28→10:09)
[2022-03-22] MEDS: PIPERACILLIN/TAZOB 3.375 GM 3.375 GM in DEXTROSE 5%-WATER - 50 ML IVPB SCH ×3 (01:32→19:11)
[2022-03-22] MEDS: ALBUTEROL SO4 0.083% IH SOL 2.5 MG/3 ML VIAL.NEB. NEB SCH ×3 (07:30→15:45)
[2022-03-22] MEDS: ASPIRIN 325 MG TABLET PO SCH (10:33)
[2022-03-22] MEDS: PANTOPRAZOLE 40 MG TABLET PO SCH (10:33)
[2022-03-22] MEDS: FUROSEMIDE 40 MG TABLET (FP) PO SCH (10:33)
[2022-03-22] MEDS: HYDROCHLOROTHIAZIDE 12.5 MG CAPSULE (FP) PO SCH (10:33)
[2022-03-22] MEDS: ENOXAPARIN NA (PORCINE) 40 MG/0.4 ML DISP.SYRIN SQ SCH (10:33)
[2022-03-22] MEDS: BUDESONIDE/FORMETEROL FUMARATE 160/4.5 mcg INHALER IH SCH (10:34)
[2022-03-22] MEDS: COLCHICINE 0.6 MG TAB PO SCH (10:34)
[2022-03-22] MEDS: TIOTROPIUM BROMIDE 2.5 MCG (SPIRIVA) RESPIMAT INHALER IH SCH (10:34)
[2022-03-22] MEDS: LOSARTAN POTASSIUM 50 MG TABLET PO SCH (11:41)
[2022-03-22] MEDS: FLUTICASONE PROP 0.05% 16 GM NASAL SPRAY NS SCH (11:41)
[2022-03-22 15:44] VITALS: BP 115/44; PULSE 65; TEMP 95.4
== END 2022-03-22 19:38 | disposition home or self-care (01) | DRG 919 ==
LOC: JER 11:48 → JERBED 19:19 → OBSVTOIN 21:42 → J5S 03-19 13:53
PROVIDERS: ADMIT Internal Medicine; ATTEND Internal Medicine
DX: T81.89XA Other complications of procedures, not elsewhere classified, initial encounter (principal); J18.9 Pneumonia, unspecified organism; I31.9 Disease of pericardium, unspecified; Z68.42 Body mass index [BMI] 45.0-49.9, adult; J90 Pleural effusion, not elsewhere classified; I31.3 Pericardial effusion (noninflammatory); I48.0 Paroxysmal atrial fibrillation; I10 Essential (primary) hypertension; E03.9 Hypothyroidism, unspecified; K57.90 Diverticulosis of intestine, part unspecified, without perforation or abscess without bleeding; J45.909 Unspecified asthma, uncomplicated; E66.01 Morbid (severe) obesity due to excess calories; F41.9 Anxiety disorder, unspecified; Z85.3 Personal history of malignant neoplasm of breast; Y83.8 Other surgical procedures as the cause of abnormal reaction of the patient, or of later complication, without mention of misadventure at the time of the procedure
CPT/HCPCS: 36415; 71045-TC-FY; 71275-TC; 80053; 80061; 81003; 82550; 83735; 83880; 84100; 84443; 84484; 84550; 85025; 85027; 85379; 85651; 86038; 86140; 86431; 87040; 87086; 93005; 93010; 94640; 99285-25; C9803-CS; G0378; Q9967; U0003; U0005

== ENCOUNTER 2023-01-15 07:21 | Emergency (ER) | payer OTHER ==
[2023-01-15 07:29] VITALS: RESP 18; BMI 48.4
[2023-01-15] MEDS ORDERED: SODIUM CHLORIDE 1,000 ML IV STA (08:17)
[2023-01-15] MEDS ORDERED: LORazepam 1 MG TABLET PO ONE (08:17)
[2023-01-15] MEDS ORDERED: LORazepam 1 MG TABLET ONE (08:27)
[2023-01-15 09:01] LABS: BASO % 0.7 % (0-2.0); EOS % 3.2 % (0-4.5); HEMATOCRIT 41.2 % (32.4-45.2); HEMOGLOBIN 14.1 GM/dL (10.7-15.3); LYMPH % 22.5 % (8-40); MCH 28.8 pg (25.7-33.7); MCHC 34.2 g/dl (32.0-36.0); MEAN CELL VOLUME 84.1 fl (80-96); MEAN PLT VOLUME 9.2 fl (7.5-11.1); MONO % 8.4 % (3.8-10.2); NEUT % 65.2 % (42.8-82.8); PLATELET COUNT 239 10^3/uL (134-434); RDW 15.5 % (11.6-15.6); WHITE BLOOD COUNT 6.6 K/mm3 (4.0-10.0)
[2023-01-15 09:07] LABS: INR 1.04 (0.83-1.09); PROTHROMBIN TIME (PATIENT) 12.1 SEC (9.7-13.0)
[2023-01-15 09:24] LABS: ALBUMIN 3.3 g/dl (3.4-5.0); CALCIUM 8.9 mg/dL (8.5-10.1)
[2023-01-15 09:25] LABS: BLOOD UREA NITROGEN 10.2 mg/dL (7-18); MAGNESIUM 2.1 mg/dL (1.8-2.4)
[2023-01-15 09:29] LABS: CREATININE 0.8 mg/dL (0.55-1.3); TOT PROT 7.2 g/dl (6.4-8.2)
[2023-01-15 09:30] LABS: BILIRUBIN,TOTAL 0.4 mg/dL (0.2-1)
[2023-01-15 12:12] VITALS: BP 129/73; PULSE 61; TEMP 97.7
[2023-01-15 18:38] LABS: HIV INTERPRETATION NEGATIVE (NEGATIVE)
== END 2023-01-15 12:24 | disposition home or self-care (01) ==
LOC: JER 07:21
PROC: 3E0337Z Introduction of Electrolytic and Water Balance Substance into Peripheral Vein, Percutaneous Approach (ICD-10-PCS; principal; 2023-01-15)
DX: F41.0 Panic disorder [episodic paroxysmal anxiety] (principal)
CPT/HCPCS: 36415; 80053; 83735; 84443; 84484; 85025; 85610; 85730; 86803; 87389; 93005; 93010; 99284-25